=== PATIENT | female | born 1990 | race Caucasian/White ===

== ENCOUNTER 2024-03-12 13:47 | Outpatient (CLI) | payer OTHER | END 2024-03-12 17:40 | disposition home or self-care (01) | LOC: OBS/DEL 13:47 | PROVIDERS: ATTEND Obstetrics & Gynecology | DX: O26.893 Other specified pregnancy related conditions, third trimester (principal); Z3A.32 32 weeks gestation of pregnancy ==

== ENCOUNTER 2024-04-01 12:58 | Outpatient (CLI) | payer OTHER | END 2024-04-01 14:28 | disposition home or self-care (01) | LOC: NST 12:58 | PROVIDERS: ATTEND Obstetrics & Gynecology Gynecology | DX: Z34.83 Encounter for supervision of other normal pregnancy, third trimester (principal) ==

== ENCOUNTER 2024-04-12 13:50 | Inpatient (IN) | payer OTHER ==
[~2024-04-12] VITALS: Ht 167.6 cm; Wt 129.3 kg
[2024-04-12] MEDS ORDERED: PRENATABS RX T1 EACH PO (13:55)
[2024-04-12] MEDS ORDERED: OXYTOCIN 500 ML IV NR (14:00)
[2024-04-12 14:27] LABS: MEAN CELL VOLUME 87.2 fL (80.00-100.00); MEAN CORPUSCULAR HEMOGLOBIN 29.9 pg (27.00-32.0); MEAN CORPUSCULAR HGB CONC 34.3 g/dl (32.0-36.0); PLATELET COUNT 178 K/uL (150-450); RED BLOOD COUNT 4.35 M/uL (4.00-6.00); RED CELL DISTRIBUTION WIDTH 12.3 % (11.5-14.5)
[2024-04-12 14:46] LABS: INR < 0.93; PARTIAL THROMBOPLASTIN TIME 27.2 SECONDS (22.0-34.0); PROTHROMBIN TIME 10.1 SECONDS (9.0-11.5)
[2024-04-12 15:11] LABS: ALBUMIN 2.9 gm/dL (3.4-5.0); BILIRUBIN TOTAL 0.58 mg/dL (0.3-1.2); CALCIUM 8.9 mg/dL (8.5-10.1); CREATININE SERUM 0.7 mg/dL (0.55-1.02); GFR 96.97; GLOBULINA 3.5 G/DL (2.4-3.5); POTASSIUM 3.92 mEq/L (3.5-5.1); TOTAL PROTEIN 6.4 gm/dL (6.4-8.2)
[2024-04-12] MEDS ORDERED: MORPHINE SULFATE 4 MG/ML VIAL IV ONE (17:30)
[2024-04-12] MEDS ORDERED: ERYTHROMYCIN BASE 1 GM TUBE OP ONE ×2 (20:23→23:15)
[2024-04-12] MEDS ORDERED: LIDOCAINE HCL 1% 10ML VIAL ONE (20:24)
[2024-04-12] MEDS ORDERED: CHLORHEXIDINE GLUCONATE 120 ML BOTTLE TOP ONE ×2 (20:24→23:15)
[2024-04-12] MEDS ORDERED: OXYTOCIN 20 UNITS/1000ML RL PIGGYBAG IV ONE (20:24)
[2024-04-12] MEDS ORDERED: NALOXONE HCL 0.4 MG/ML AMPUL ONE (20:32)
[2024-04-12] MEDS ORDERED: OXYTOCIN 10 UNITS/ML VIAL IM STA (21:52)
[2024-04-12] MEDS ORDERED: IBUprofen 400 MG TABLET PO PRN (22:00)
[2024-04-12] MEDS ORDERED: OxyCODONE HCL/APAP UD (PERCOCET) PO PRN (22:00)
[2024-04-12] MEDS ORDERED: NALOXONE HCL 0.4 MG/ML AMPUL IV ONE (23:15)
[2024-04-12] MEDS ORDERED: LIDOCAINE HCL 1% 10ML VIAL PERCUT ONE (23:15)
[2024-04-12] MEDS ORDERED: OXYTOCIN 1,000 ML IV SCH (23:15)
== END 2024-04-14 12:58 | disposition home or self-care (01) | DRG 807 ==
LOC: LDR 13:50 → OB/GYN 22:09
PROVIDERS: ADMIT Obstetrics & Gynecology; ATTEND Obstetrics & Gynecology
PROC: 10E0XZZ Delivery of Products of Conception, External Approach (ICD-10-PCS; principal; 2024-04-12)
PROC: 4A1HXCZ Monitoring of Products of Conception, Cardiac Rate, External Approach (ICD-10-PCS; 2024-04-12)
DX: O80 Encounter for full-term uncomplicated delivery (principal); Z37.0 Single live birth; Z3A.37 37 weeks gestation of pregnancy; Z20.822 Contact with and (suspected) exposure to COVID-19